=== PATIENT | female | born 1985 ===

== ENCOUNTER 2022-10-28 22:26 | Emergency (ER) | payer BC, OTHER ==
[~2022-10-28] VITALS: Ht 154.9 cm; Wt 91.4 kg
[2022-10-28 22:55] LABS: Basophils # (auto) 0.1 10 ^3/uL (0-0.2); Mean Corpuscular Hemoglobin 26.7 pg (28.0-32.0)
[2022-10-28 22:56] LABS: Basophils % (auto) 1.4 % (0.0-2.0); Eosinophils # (auto) 0.3 10 ^3/uL (0-0.8); Eosinophils % (auto) 4.3 % (0.0-7.0); Hematocrit 38.7 % (36.0-46.0); Hemoglobin 12.8 g/dL (12.2-16.2); Lymphocytes # (auto) 1.8 10 ^3/uL (0.4-5.4); Lymphocytes % (auto) 22.4 % (10.0-50.0); Mean Corpuscular Hgb Conc. 33.1 g/dL (32.0-36.0); Mean Corpuscular Volume 80.7 fL (80.0-100.0); Monocytes # (auto) 0.9 10 ^3/uL (0-1.3); Monocytes % (auto) 10.7 % (0.0-12.0); Neutrophils % (auto) 61.2 % (37.0-80.0); Nucleated Red Blood Cells % 0.1 %; Red Cell Distribution Width 13.6 % (11.8-14.3); White Blood Cell 8.1 10^3/uL (4.4-10.8)
[2022-10-28 23:09] LABS: Albumin 3.2 g/dL (3.4-5.0); Calcium 8.7 mg/dL (8.5-10.1); Magnesium 2.6 mg/dL (1.6-2.6); Potassium 3.8 mmol/L (3.5-5.1)
[2022-10-28 23:13] LABS: BUN/Creatinine Ratio 10.8 (10.0-20.0); Bilirubin, Total 0.4 mg/dL (0.2-1.0)
[2022-10-29] MEDS ORDERED: ALBUTEROL SULF 2.5 MG/0.5ML(0.5%) NEB SOLN NEB ONE (00:45)
[2022-10-29] MEDS ORDERED: IPRATROPIUM BROM 0.5 MG/2.5ML INH SOL NEB ONE (00:45)
[2022-10-29] MEDS ORDERED: AZIT250T9 PO (00:59)
[2022-10-29] MEDS ORDERED: DEX4T PO (00:59)
[2022-10-29] MEDS ORDERED: DexAMETHasone 4 MG TAB PO ONE (01:00)
[2022-10-29] MEDS ORDERED: BENZ100C19 PO (01:00)
[2022-10-29] MEDS ORDERED: ALBUAER3 IN (01:00)
[2022-10-29] MEDS ORDERED: AZITHROMYCIN 250 MG TAB PO ONE (01:00)
[2022-10-29 01:43] VITALS: BP 144/77
== END 2022-10-29 01:46 | disposition home or self-care (01) ==
LOC: ER 22:26
DX: J18.9 Pneumonia, unspecified organism (principal)
CPT/HCPCS: 36415; 71046; 80053; 83735; 84484; 85025; 93005; 94640; 99285; J7644; J8540